=== PATIENT | female | born 1995 | race Caucasian/White ===

== ENCOUNTER 2020-01-10 08:16 | Day surgery (SDC) | payer BC ==
--- NOTE | 2020-01-10 08:27 | HP ---
DATE OF SURGERY: 01/10/2020 HISTORY OF PRESENT ILLNESS: The patient is a 24 year-old with history of heartburn, increased reflux taking some Nexium not helping as much, some epigastric pain. Prevacid has helped a little bit. PAST MEDICAL HISTORY: Hypertension, anxiety and reflux. PAST SURGICAL HISTORY: She denied any prior surgery. MEDICATIONS: Lisinopril, Prozac, Buspar, Prevacid. ALLERGIES: NKDA. FAMILY HISTORY: Diabetes, hypertension, lupus. SOCIAL HISTORY: Denied smoking. Does drink some alcohol denies abuse. REVIEW OF SYSTEMS: Fourteen systems reviewed. No chest pain or palpitations. Other systems negative or noncontributory as above and per preadmission questionnaire. PHYSICAL EXAMINATION: GENERAL: No acute distress. HEENT: Sclerae nonicteric. NECK: No JVD. CHEST: Equal excursion, nonlabored breathing. CVS: Regular rate and rhythm. ABDOMEN: Soft, some mild tenderness epigastrium. No peritoneal signs. EXTREMITIES: No edema. NEURO: Alert, oriented, moving extremities symmetrically. PSYCH: Appropriate mood and affect. IMPRESSION: Increased heartburn, reflux. I feel the patient would benefit from EGD possible biopsy. If there is any narrowed area might need possible dilatation possibly less likely. General risk of bleeding or infection, risk of bowel injury or perforation possibly requiring open procedure, risk of missed or nondiagnosis or incomplete exam possibly requiring other studies. She understands if this is fairly unremarkable may need to consider gallbladder work up. She understands and agrees to the planned procedure and will proceed with EGD, possible biopsy, possible dilatation as an outpatient.
[2020-01-10] MEDS ORDERED: Xylocaine-Mpf 2% 5 Ml Vial ONE (08:54)
[2020-01-10] MEDS ORDERED: Ketamine HCl 50 MG/ML ONE (08:54)
[2020-01-10] MEDS ORDERED: DIPRIVAN 200 MG/20 ML IV ONE ×2 (08:54→12:08)
[2020-01-10] MEDS ORDERED: Lactated Ringers 1,000 ML IV SCH (09:00)
--- NOTE | 2020-01-10 10:23 | XRAY ---
Indication: Status post fall following syncope. Multiple contiguous axial images obtained through the head without contrast. Comparison: None Minimal right parietal scalp soft tissue swelling. Normal appearing brain parenchyma, ventricles, and bony calvarium. Visualized paranasal sinuses and mastoid air cells are clear. Impression: Minimal right parietal scalp soft tissue swelling. Otherwise normal CT head without contrast exam.
[2020-01-10 13:04] VITALS: O2SAT 98
[2020-01-10 13:11] VITALS: PULSE 97
[2020-01-10 13:12] VITALS: BP 146/89
--- NOTE | 2020-01-10 14:49 | OP ---
SURGERY DATE/TIME: 01/10/2020 1158 PREOPERATIVE DIAGNOSIS: History of increased heartburn and epigastric pain. POSTOPERATIVE DIAGNOSES: 1) Minimal gastritis. 2) Short segment plus/minus distal gastroesophagitis. 3) Small gastric polyp. PROCEDURES: 1) EGD with cold biopsy of the small bowel to rule out celiac sprue. 2) Cold biopsy of the antrum to evaluate for Helicobacter pylori. 3) Cold biopsy gastric polyp. 4) Cold biopsy distal esophagus. SURGEON: Dr. Kraig Miller. ANESTHESIA: MAC. ESTIMATED BLOOD LOSS: Minimal. INDICATIONS: As noted above. Risks and benefits explained in detail and not limited to and consent obtained. DESCRIPTION OF PROCEDURE AND FINDINGS: The patient is taken to the endoscopy room. MAC anesthesia introduced. After official time out and no disagreement with planned procedure, a bite block positioned. Video gastroscope easily passed down the esophagus to the patent pylorus to the junction of the second and third portion of the duodenum. No signs of any obvious ulcers or lesions in the proximal small bowel. Cold biopsy taken to evaluate for sprue and to rule out other etiologies. Good hemostasis noted. The scope pulled back into the stomach. Back in the stomach there is some mild gastric erythema and possibly some early minimal gastritis. Cold biopsy is taken in the antrum to evaluate for Helicobacter pylori. Good hemostasis noted. No signs of any obvious ulcers just a small gastric polyp that was removed with cold biopsy forceps in the body of proximal stomach. Good hemostasis noted. On retroflex gastroesophageal junction was snug against the scope. No signs of any significant hiatal hernia. The scope was pulled back and gastroesophageal junction about 37 cm. A short segment of little, tiny fingerlet, possibly early distal gastroesophagitis versus very short segment of early Ewing's. Cold biopsy was taken in these two areas to evaluate for path. Good hemostasis noted. The patient was coughing a lot at this point for a few minutes and once she was more comfortable under the MAC anesthesia was able to complete the biopsy. Good hemostasis noted. The remainder of the esophagus was grossly unremarkable. No signs of any other mucosal lesions. The patient tolerated the procedure well. There were no immediate complications. There was no family here to discuss the findings with. As there were no major findings of ulcers or extensive erosive esophagitis, it was felt she warranted gallbladder work up, will check a gallbladder ultrasound if she has not done one recently. If negative check a HIDA. See her back in the office in a week to go over the results.
== END 2020-01-10 13:39 | disposition home or self-care (01) ==
LOC: SDC 08:16
PROVIDERS: ATTEND Surgery
DX: K29.50 Unspecified chronic gastritis without bleeding (principal); K20.9 Esophagitis, unspecified; K21.9 Gastro-esophageal reflux disease without esophagitis; K31.7 Polyp of stomach and duodenum; R10.13 Epigastric pain; R55 Syncope and collapse; I10 Essential (primary) hypertension; F41.9 Anxiety disorder, unspecified; Z79.899 Other long term (current) drug therapy; W19.XXXA Unspecified fall, initial encounter; Y92.230 Patient room in hospital as the place of occurrence of the external cause
CPT/HCPCS: 70450; 84703; 88305; J2704

== ENCOUNTER 2020-02-21 10:52 | Day surgery (SDC) | payer BC ==
--- NOTE | 2020-02-21 08:01 | HP ---
DATE OF SURGERY: 02/21/2020 HISTORY OF PRESENT ILLNESS: The patient is a 24 year old who had some heartburn, increased reflux recently and underwent upper endoscopy. No large ulcer. She ended up having an ultrasound show cholelithiasis. It was felt she had acute exacerbation symptomatic cholelithiasis chronic cholecystitis. It was felt she would benefit from cholecystectomy. PAST MEDICAL HISTORY: Hypertension, anxiety. PAST SURGICAL HISTORY: Upper endoscopy otherwise no other abdominal surgeries according to the patient. MEDICATIONS: Lisinopril, Prozac, BuSpar, Prevacid, ALLERGIES: NKDA. FAMILY HISTORY: Diabetes, hypertension, lupus. SOCIAL HISTORY: Denies smoking. She does drink some alcohol on occasion denies abuse. REVIEW OF SYSTEMS: Fourteen systems reviewed pertinent for as noted above. No chest pain or palpitations. Other systems negative or noncontributory as above and per preadmission questionnaire. PHYSICAL EXAMINATION: GENERAL: No acute distress. HEENT: Sclerae nonicteric. NECK: No JVD. CHEST: Equal excursion, nonlabored breathing. CVS: Regular rate and rhythm. ABDOMEN: Soft. No peritoneal signs. EXTREMITIES: No significant edema. NEURO: Alert, oriented, moving extremities symmetrically. No gross motor deficits noted. PSYCH: Appropriate mood and affect. IMPRESSION: Acute exacerbation symptomatic cholelithiasis, chronic cholecystitis. I feel the patient will benefit from cholecystectomy. She was shown the gallbladder pamphlet and risk sheet, explained the procedure in detail including but not limited to bleeding or infection, risk of trocar injury or hernia, risk of bowel, bladder or blood vessel injury, risk of bile leak, bile duct injury, retained stone or sludge possibly requiring further procedure either open or ERCP, general risk of anesthesia, deep venous thrombosis, pulmonary embolism, pneumonia, perioperative risk of aches, pains, bloating, constipation and/or loose stools possibly chronic in nature. General risk of anesthesia, deep venous thrombosis, pulmonary embolism or pneumonia, possibility of open procedure, possibility that this procedure may not improve her symptoms. She may need further work up and/or testing, other studies or procedures. She understands and agrees to the planned procedure, will proceed with laparoscopic cholecystectomy with possible open as an outpatient.
[~2020-02-21 10:52] MED LIST: DIPRIVAN 200 MG/20 ML IV ONE; Lactated Ringers 1,000 ML IV SCH; MEFOXIN 2 GM PREMIX** 2 GM/50 ML ML IV SCH
[2020-02-21] MEDS ORDERED: Decadron 4 MG INJ IV ONE (10:53)
[2020-02-21] MEDS ORDERED: BRIDION 200MG/2ML IV ONE (10:53)
[2020-02-21] MEDS ORDERED: SUBLIMAZE 250 MCG/5 ML IV ONE (10:53)
[2020-02-21] MEDS ORDERED: Zemuron 100 MG/10 ML IV ONE ×2 (10:53)
[2020-02-21] MEDS ORDERED: Zofran 4 MG/2 ML VIAL IV ONE (10:53)
[2020-02-21] MEDS ORDERED: Versed 2 MG/2 ML Injection IV ONE (10:53)
[2020-02-21] MEDS ORDERED: Sensorcaine 0.25% 10 ML ONE (11:20)
[2020-02-21] MEDS ORDERED: Lactated Ringers 1,000 ML IV ONE (11:20)
[2020-02-21] MEDS ORDERED: MORPHINE SULFATE 10 MG/ML ONE (13:43)
[2020-02-21] MEDS ORDERED: SUBLIMAZE 100 MCG/2 ML ONE (13:49)
--- NOTE | 2020-02-21 14:27 | OP ---
SURGERY DATE/TIME: 02/21/2020 1240 PREOPERATIVE DIAGNOSIS: Symptomatic cholelithiasis, exacerbation chronic cholecystitis. POSTOPERATIVE DIAGNOSIS: Symptomatic cholelithiasis, severe chronic cholecystitis. PROCEDURE: Laparoscopic cholecystectomy. SURGEON: Dr. Kraig Miller. ANESTHESIA: General. ESTIMATED BLOOD LOSS: Minimal. INDICATIONS: As noted above. Risks and benefits explained in detail but not limited to and consent obtained. DESCRIPTION OF PROCEDURE AND FINDINGS: The patient was taken to the operating room. General anesthesia induced. Abdomen prepped and draped in the usual sterile fashion. After official time out and no disagreement with planned procedure, a transverse incision made at supraumbilical area. Fascia grasped and pulled upward. Veress needle inserted and tested with saline. Pneumoperitoneum accomplished insufflating opening pressure of 0-15. An 11 mm bladeless port and camera inserted without difficulty followed by two - 5 mm right upper quadrant ports and 5 mm epigastric port. The gallbladder grasped retracted over the edge of the liver. It had some chronic inflammatory reaction. Dissecting posterior, lateral to anterior fashion slowly and carefully cystic duct and infundibular, main cystic artery isolated until the critical view obtained both anteriorly and posteriorly. Once this was accomplished the cystic duct and cystic artery clipped x3 and divided in usual fashion. It should be noted the patient had additional oozing side branch off the cystic artery directly on the gallbladder wall that was clipped as necessary. The gallbladder is slowly and carefully dissected free from its dense chronic attachment to liver bed staying directly on the gallbladder wall again clipping additional oozing side branches off the cystic artery as necessary as this was quite a vascular gallbladder. Just prior to releasing from final attachments to the anterior edge of the liver, the liver bed re-inspected. Clips noted to be in place in cystic duct and cystic artery stumps. No signs of any bleeding or bile leakage from the liver bed itself. One of the graspers tore a small pinhole in the gallbladder spilling a small amount of bile. There was no evidence of any stone spillage this is suction irrigated as clear as possible. The gallbladder is released from final attachments to anterior edge of the liver, placed in the provided sac provided by the hospital, pulled up and the fascia spread slightly as the gallbladder, gallstone and bag pulled free and passed off. The fascia defect closed with puncture closure device with #1 Vicryl. Pneumoperitoneum decompressed. Fascial defect closed with puncture closure device with #1 Vicryl. Copious amount of irrigation accomplished lateral to the liver and subhepatic space irrigating clear. Pneumoperitoneum was then decompressed. Skin incision closed with 4-0 Vicryl after washing the wound out. Skin incision closed with 4-0 Vicryl. Steri-Strips and sterile dressing applied. 0.25% Marcaine local injected along the skin incision fascial defect at the beginning of the procedure. There were no immediate complications. There was no family available to discuss the findings with.
[2020-02-21 14:48] VITALS: PULSE 85; O2SAT 96
[2020-02-21 15:47] VITALS: BP 149/77
== END 2020-02-21 15:45 | disposition home or self-care (01) ==
LOC: SDC 10:52
PROVIDERS: ATTEND Surgery
DX: K80.10 Calculus of gallbladder with chronic cholecystitis without obstruction (principal); I10 Essential (primary) hypertension; Z79.899 Other long term (current) drug therapy
CPT/HCPCS: 84703; 88304; J0694; J1100; J2250; J2270; J2405; J2704; J3010